=== PATIENT | male | born 1935 | race Caucasian/White ===

== ENCOUNTER → 2019-01-18 | Outpatient (CLI) | payer OTHER ==
[~2019-01-18] MED LIST: CLOP75TA14 PO; METO-408 PO; MOME17N NS; PANT40TA25 PO; ROSU5TAB PO
== END | disposition home or self-care (01) ==
LOC: RAH 15:15
PROVIDERS: ATTEND Internal Medicine Cardiovascular Disease
DX: I87.2 Venous insufficiency (chronic) (peripheral) (principal)
CPT/HCPCS: 93970